=== PATIENT | female | born 1970 | race Hispanic/Latino ===

== ENCOUNTER 2018-09-16 23:42 | Emergency (ER) | payer OTHER ==
[2018-09-17] MEDS ORDERED: LIDOCAINE 5% TOPICAL PATCH TP ONE (00:26)
[2018-09-17] MEDS ORDERED: IBUPROFEN 600 MG TABLET ONE (00:26)
== END 2018-09-17 01:09 | disposition home or self-care (01) ==
LOC: EDH 23:42
DX: S39.012A Strain of muscle, fascia and tendon of lower back, initial encounter (principal); E11.9 Type 2 diabetes mellitus without complications; Z87.442 Personal history of urinary calculi; X58.XXXA Exposure to other specified factors, initial encounter; Y93.89 Activity, other specified; Y92.89 Other specified places as the place of occurrence of the external cause; Y99.8 Other external cause status

== ENCOUNTER → 2023-06-27 | Outpatient (CLI) | payer BC ==
[~2023-06-27] MED LIST: FAMO-136 PO; PROC5TAB54 PO
== END | disposition home or self-care (01) ==
LOC: RAH 12:08
PROVIDERS: ATTEND Family Medicine
DX: L03.032 Cellulitis of left toe (principal); M89.9 Disorder of bone, unspecified; L08.9 Local infection of the skin and subcutaneous tissue, unspecified
CPT/HCPCS: 73620

== ENCOUNTER 2024-05-21 10:32 | Emergency (ER) | payer BC ==
[~2024-05-21] VITALS: Ht 160 cm; Wt 81.6 kg
[2024-05-21 11:58] LABS: BASOPHILS # (AUTO) 0.05 K/uL (0.00-0.20); BASOPHILS % (AUTO) 0.5 % (0.0-5.0); HEMATOCRIT 43.3 % (36-48); IMMATURE GRANULOCYTE ABSOLUTE 0.03 K/uL (0-1); LYMPHOCYTES # (AUTO) 3.7 K/uL (1.0-4.8); MEAN CORPUSCULAR HEMOGLOBIN 28.6 pg (27.0-33.0); MEAN CORPUSCULAR HGB CONC 32.6 g/dL (32.0-36.0); MEAN CORPUSCULAR VOLUME 87.8 fL (79-99); MONOCYTES # (AUTO) 0.8 K/uL (0.1-1.0); MONOCYTES % (AUTO) 8.2 % (3.0-13.0); PLATELET COUNT (AUTO) 297 K/uL (130-400); RED BLOOD CELL COUNT(AUTO) 4.93 MIL/uL (4.00-5.50); RED CELL DISTRIBUTION WIDTH 12.5 % (11.0-15.5); WHITE BLOOD COUNT (AUTO) 9.8 K/uL (4.8-10.8)
--- NOTE | 2024-05-21 12:03 | HMCIMG ---
TOE(S) 2+VWS LT REASON: left 1st toe TECHNIQUE: 3 views were obtained. FINDINGS: There is no evidence of fracture or dislocation. There is no joint effusion. There is diffuse soft tissue swelling. There is no evidence of a radiopaque foreign body. There is no evidence of osteomyelitis or gas forming infection. IMPRESSION: 1. Diffuse soft tissue swelling, no evidence of osteomyelitis or gas forming infection.
[2024-05-21 12:11] LABS: POTASSIUM 3.9 mmol/L (3.5-5.1)
--- NOTE | 2024-05-21 12:20 | ERN ---
General Chief Complaint: Toe Pain/Injury Stated Complaint: LEFT TOE SWOLLEN, WOUND CHECK Time Seen by MD: 10:34 Time Seen by Midlevel: 10:34 Source: patient History of Present Illness Initial Comments Patient is a 53-year-old female with a past medical history of uncontrolled diabetes presenting to the emergency department with a wound to the left toe. Patient states the wound has been intermittent in nature for the last two years. She was followed by a electric trucker but has not seen them in the last couple of months. Most recently she reports pain to the area so she decided to report to the ER for further evaluation. She denies any fever, chills, or any other symptoms at this time. She does report taking insulin at home. She states her sugars usually run "high" but is unable to give me a number. Allergies: Coded Allergies: No Known Drug Allergies (Unverified Allergy, Unknown, 09/17/18) Home Meds Active Scripts Famotidine (Pepcid) 20 Mg Tablet, 20 MG PO BID, #60 TAB Prov:CHAI KEE MD 10/24/20 Prochlorperazine Maleate (Compazine) 5 Mg Tab, 5 MG PO TID, #15 TAB Prov:CHAI KEE MD 10/24/20 Past Medical History Past Medical History: Diabetes-Type II, High Cholesterol Past Surgical History: Cholecystectomy ROS Dictation CONSTITUTIONAL: Negative except for HPI HEAD/FACE: Negative except for HPI EENT: Negative except for HPI RESPIRATORY: Negative except for HPI GASTROINTESTINAL/ABDOMINAL: Negative except for HPI GENITOURINARY: Negative except for HPI MUSCULOSKELETAL: Negative except for HPI INTEGUMENTARY: Negative except for HPI NEUROLOGICAL/PSYCH: Negative except for HPI HEMATOLOGIC/LYMPHATIC: Negative except for HPI All Systems Negative, Except as noted above. 13 point review of systems assessed and all negative except for above. Physical Exam Physical Exam Dictation Vital Signs reviewed General Appearance: Alert, oriented x 3, no acute distress, well developed, nourished. Head and Face: non-traumatic. Eyes: PERRL, pink conjunctivas, eyelid no trauma, anterior chamber with arcus senilis. Ears: Pinnas intact and no signs of trauma or erythema ear canals clear and no discharge TM no erythema Nose: No discharge, no bleeding. Oropharynx: Mouth normal, tongue pink, pharynx clear,no erythema, tonsils no exudates, no abscesses noted, mucous membrane moist Neck: Supple, non-tender, no thyromegaly, no masses, no JVD, no bruits Breast:Deferred Chest:No tenderness, no crepitus, no paradoxical movement, no retractions Lungs:Clear, well-ventilated, symmetric, no rales, no wheezing, no rhonchi, no stridor, good breath sounds bilaterally Heart: Regular rate, regular rhythm, no murmur, no gallops Vascular: no peripheral edema, Abdomen: Soft, positive bowel sounds, nondistended, no guarding, nontender, no rebound, no masses no hepatomegaly, no splenomegaly, no Webber's sign, no hernias. Rectal: Deferred Genital: Deferred Neurological: Normal speech, motor function intact, sensory function intact Musculoskeletal: Neck nontender, full range of motion, back nontender, full range of motion, Extremities: nontender, full range of motion Skin: There is a superficial abrasion/wound to the left foot medial to the left great toe, there was no surrounding erythema, induration, or drainable abscess Lymphatic: Deferred Results Laboratory and Microbiology Lab and Micro Result Laboratory Tests Test 05/21/24 11:46 White Blood Count 9.8 K/uL (4.8-10.8) Red Blood Count 4.93 MIL/uL (4.00-5.50) Hemoglobin 14.1 g/dL (12.0-16.0) Hematocrit 43.3 % (36-48) Mean Corpuscular Volume 87.8 fL (79-99) Mean Corpuscular Hemoglobin 28.6 pg (27.0-33.0) Mean Corpuscular Hemoglobin Concent 32.6 g/dL (32.0-36.0) Red Cell Distribution Width 12.5 % (11.0-15.5) Platelet Count 297 K/uL (130-400) Mean Platelet Volume 10.9 fL (7.5-10.5) H Immature Granulocyte % (Auto) 0.3 % (0-1) Neutrophils (%) (Auto) 51.0 % (40.0-77.0) Lymphocytes (%) (Auto) 38.0 % (21.0-51.0) Monocytes (%) (Auto) 8.2 % (3.0-13.0) Eosinophils (%) (Auto) 2.0 % (0.0-8.0) Basophils (%) (Auto) 0.5 % (0.0-5.0) Neutrophils # (Auto) 5.0 K/uL (1.8-7.7) Lymphocytes # (Auto) 3.7 K/uL (1.0-4.8) Monocytes # (Auto) 0.8 K/uL (0.1-1.0) Eosinophils # (Auto) 0.20 K/uL (0.00-0.70) Basophils # (Auto) 0.05 K/uL (0.00-0.20) Absolute Immature Granulocyte (auto 0.03 K/uL (0-1) Nucleated Red Blood Cells 0.0 % (0.0-0.19) Erythrocyte Sedimentation Rate 21 MM/HR (0-30) Sodium Level 140 mmol/L (136-145) Potassium Level 3.9 mmol/L (3.5-5.1) Chloride Level 105 mmol/L (101-111) Carbon Dioxide Level 30 mmol/L (21-32) Blood Urea Nitrogen 24 mg/dL (7-18) H Creatinine 1.0 mg/dL (0.5-1.0) Glomerular Filtration Rate Calc 68 mL/min (>90) Random Glucose 158 mg/dL (70-105) H Lactic Acid Level 1.3 mmol/L (0.8-2.5) Total Calcium 9.5 mg/dL (8.5-10.1) Procalcitonin < 0.05 ng/mL (0.05-0.5) L Labs Reviewed?: Yes MDM MDM:Patient is a 53-year-old female with a past medical history of uncontrolled diabetes presenting to the emergency department with a wound to the left toe. Patient states the wound has been intermittent in nature for the last two years. She was followed by a electric trucker but has not seen them in the last couple of months. Most recently she reports pain to the area so she decided to report to the ER for further evaluation. She denies any fever, chills, or any other symptoms at this time. She does report taking insulin at home. She states her sugars usually run "high" but is unable to give me a number. On physical examination patient is in no acute distress. Initial vital signs are stable. Patient is afebrile and nontoxic appearing. There is a superficial abrasion/wound to the left foot medial to the left great toe, there was no surrounding erythema, induration, or drainable abscess. Her CBC shows no leukocytosis. Her chemistries are stable. Her random glucose is 158. Her lactic acid is normal. Her toe x-ray does not show any evidence of osteomyelitis or gas producing bacteria. There was no acute fracture or disl ocation. Patient will be started on oral antibiotics and will be discharged home with outpatient follow up with your electric trucker. Differential diagnosis: Uncontrolled diabetes, cellulitis, abscess, osteomyelitis There are no social concerns with this patient. Prescription drug management Prescriptions will include: Bactrim Medical management and examination interpretation discussions were had by me with other qualified healthcare professionals as indicated for the patient's care. ED Course Orders Procedure Category Date Status Time Cbc With Differential LAB 05/21/24 Complete 10:48 Basic Metabolic Panel LAB 05/21/24 Complete 10:48 Erythrocyte LAB 05/21/24 Complete Sedimentation Rate 10:48 Procalcitonin LAB 05/21/24 Complete 10:48 Lactic Acid LAB 05/21/24 Complete 10:48 Toe(S) 2+Vws Lt RAD 05/21/24 Resulted 10:48 Ceftriaxone 1g Vial PHA 05/21/24 Complete (Rocephine 1g Inj) 12:30 Current Medications Medications (Trade) Dose Ordered Sig/Robert Route PRN Reason Start Time Stop Time Status Last Admin Dose Admin Ceftriaxone Sodium (ROCEphine 1G INJ) 1 gm ONCE ONCE IVPB 05/21/24 12:30 05/21/24 12:31 DC Vital Signs Date Time Temp Pulse Resp B/P (MAP) Pulse Ox O2 Delivery O2 Flow Rate FiO2 05/21/24 10:43 98.1 96 20 164/79 99 Room Air 0 [facility] [address] [place] [address] IMAGING REPORT Signed PATIENT: ELIANE AGUILAR MR#: [id number] : 1970 SEX: F AGE: 53 LOCATION: [facility] ORDER 1049 STATUS: REG ER REPORT#: [id number] SERVICE 1048 REASON: left 1st toe ORDERING PHYSICIAN: AIMEE THOMPSON PROCEDURE: TOES LT - TOE(S) 2+VWS LT TOE(S) 2+VWS LT REASON: left 1st toe TECHNIQUE: 3 views were obtained. FINDINGS: There is no evidence of fracture or dislocation. There is no joint effusion. There is diffuse soft tissue swelling. There is no evidence of a radiopaque foreign body. There is no evidence of osteomyelitis or gas forming infection. IMPRESSION: 1. Diffuse soft tissue swelling, no evidence of osteomyelitis or gas forming infection. DICTATED BY: JADA SILVA MD DATE: 05/21/24 1200 ELECTRONICALLY SIGNED BY: JADA SILVA MD DATE: 05/21/24 1203 DX & DISP Disposition: Discharge Departure Impression: Primary Impression: Toe ulcer due to DM Condition: Stable Assign Patient to: Your blood work today is unremarkable. Your white blood cell count is normal. There was no evidence of a bone infection. Your electrolytes are normal. Your left toe x-ray does not show any evidence of a bone infection. You were given antibiotics in the emergency department and will be discharged home with oral antibiotics. Please follow up with your electric trucker for outpatient evaluation. Return to the ER if you develop any new or worsening symptoms. Scripts Sulfamethoxazole/Trimethoprim (Bactrim Ds Tablet) 800 Mg-160 Mg Tablet 1 TAB PO BID for 7 Days, #14 TAB 0 Refills Prov: AIMEE THOMPSON 05/21/24 Referrals: PRIYA MENG M.D. (PCP) Time of Disposition: 13:07 I have reviewed the case, and I agree with, Diagnosis and Plan I performed the substantive portion of the visit. I have reviewed and personally made and approve the management plan that is documented in the note by myself or the ELISABETH. I acknowledge for responsibility for the patient's management plan. AIMEE THOMPSON May 21, 2024 12:20
[2024-05-21 13:02] LABS: ERYTHROCYTE SEDIMENTATION RATE 21 MM/HR (0-30)
[2024-05-21] MEDS ORDERED: SULF1TAB42 PO (13:09)
--- NOTE | 2024-05-21 14:50 | NUR ---
ASSUMED CARE AT THIS TIME. MOVED PT INTO [facility] FOR ASSESSMENT AND MED PASS.
[2024-05-21] MEDS: cefTRIAXone 1G VIAL IVPB ONE (14:58)
[2024-05-21 15:02] VITALS: BP 150/76; PULSE 84; RESP 18; TEMP 98.9; O2SAT 99
== END 2024-05-21 15:03 | disposition home or self-care (01) ==
LOC: EDH 10:32
DX: E11.621 Type 2 diabetes mellitus with foot ulcer (principal); E78.00 Pure hypercholesterolemia, unspecified; Z79.4 Long term (current) use of insulin; Z90.49 Acquired absence of other specified parts of digestive tract
CPT/HCPCS: 99284; 96374; 80048; 85025; 85651; 83605; 36415; 73660; 84145; J0696

== ENCOUNTER → 2024-11-15 | Outpatient (CLI) | payer BC ==
[~2024-11-15] MED LIST changes: +SULF1TAB42 PO
--- NOTE | 2024-11-18 16:39 | HMCIMG ---
EXAM: CR left foot, 2 View. CLINICAL HISTORY: CHRONIC ULCER OF LEFT FOOT COMPARISON: None provided. FINDINGS: BONES: No fracture or destructive process JOINTS: Degenerative changes. SOFT TISSUES: Soft tissue swelling IMPRESSION: 1. Degenerative changes. 2. Soft tissue swelling 3. No fracture or destructive process /[place]
== END | disposition home or self-care (01) ==
LOC: RAH 11:58
PROVIDERS: ATTEND Family Medicine
DX: M19.072 Primary osteoarthritis, left ankle and foot (principal); L97.529 Non-pressure chronic ulcer of other part of left foot with unspecified severity; M79.89 Other specified soft tissue disorders
CPT/HCPCS: 73620